=== PATIENT | male | born 1995 | race Caucasian/White ===

== ENCOUNTER 2021-02-05 15:05 | Emergency (ER) | payer SELFPAY ==
[2021-02-05 15:35] VITALS: BP 119/71; PULSE 73; RESP 18; TEMP 36.7; O2SAT 100
--- NOTE | 2021-02-05 15:52 | ED.URI ---
HPI - URI/Sore Throat General Chief Complaint: Upper Respiratory Infection Stated Complaint: Sore Throat Time Seen by Provider: 02/05/21 15:52 Source: patient and RN notes reviewed Mode of arrival: ambulatory Limitations: no limitations History of Present Illness HPI Narrative: 25 [facility] 2 day history of sore swollen scratchy throat, able to swallow but with with increase discomfort. Patient denies any ear pain, sinus drainage, cough, headache or feelings of chest or sinus congestion. Patient states that he has not experienced any known fevers, chills or sweats, denies any shortness of breath or any acute cough. Patient states that his pain is burning and sore, rates it 6/10, has been using throat spray for his discomfort. MD elicited complaint: sore throat Pertinent past history: seasonal allergies and other (tobacco abuse) Onset (ago): day(s) (2) Consistency: constant Severity: moderate Pain scale (0-10): 6 Description of mucous: clear Able to tolerate fluids by mouth: Yes Exacerbating factors: swallowing Relieving factors: other (throat spray helps some) Associated symptoms: denies other symptoms Treatments prior to arrival: other (throat spray) Related Data Allergies Allergy/AdvReac Type Severity Reaction Status Date / Time No Known Allergies Allergy Verified 02/05/21 15:29 Review of Systems Review of Systems: Narrative: CONSTITUTIONAL: Denies fever, chills, or sweats. EYES: Denies visual changes, redness, or discharge. ENT:Denies any rhinorrhea, congestion,positive for sore throat, denies otalgia. CARDIOVASCULAR: Denies chest pain, palpitations, or edema. RESPIRATORY: Denies cough or dyspnea. GASTROINTESTINAL: Denies abdominal pain, nausea, vomiting, or diarrhea. GENITOURINARY: Denies dysuria or hematuria. SKIN: Denies rash or itching. MUSCULOSKELETAL: Denies back pain, joint pain, or myalgia. NEUROLOGIC: Denies headache, numbness, or weakness. PSYCHIATRIC: Denies anxiety or depression. All systems reviewed & are unremarkable except as noted in HPI and below PMFSH Past Medical History Medical History (Updated 02/09/21 @ 20:01 by Marily Cervantes NP) Fracture of arm Seasonal allergies Surgical History Surgical History (Updated 02/09/21 @ 19:57 by Marily Cervantes NP) No history of previous surgery Family History Family History (Updated 02/09/21 @ 19:57 by Marily Cervantes NP) Other No significant family history Social History Social History (Updated 02/05/21 @ 16:00 by Marily Cervantes NP) Smoking packs per day: 0.5 Smoking cigarettes per day: 10.0 Smoking status: Current every day smoker Tobacco type: cigarettes Alcohol intake: current Substance use: never Living arrangements: with family Gender identity (if verbalized by the patient): Male Comments At time of signature, agree with nursing past medical, surgical, social and family history. There is no relevant family history pertinent to the presenting complaint Exam Narrative: Exam Narrative: GENERAL: Well-appearing, well-nourished, and in no acute distress. HEAD: Normocephalic, atraumatic. EYES: PERRLA and EOMI. ENT: Nares clear, no rhinorrhea or epistaxis. Mucous membranes moist.TM's normal with good light reflex, throat red, swollen uvula but midline, tonsils enlarged and acutely red, no post nasal drainage noted, no trismus noted. NECK: Supple.lymphadenopathy noted CHEST: Clear to auscultation. No respiratory distress.no dyspnea or cough noted, SAO2 100% on room air HEART: Regular rate and rhythm. No murmur heard. Normal peripheral pulses. ABDOMEN: Soft, nontender, nondistended, normal active bowel sounds. EXTREMITIES: Normal range of motion. No edema. SKIN: Warm, dry, no rash. NEURO: No focal deficits. Alert and oriented x3. Course Vital Signs Vital signs: Vital Signs Temperature 36.7 C 02/05/21 15:35 Pulse Rate 73 02/05/21 15:35 Respiratory Rate 18 02/05/21 15:
== END 2021-02-05 16:10 | disposition home or self-care (01) ==
PROVIDERS: Emergency Provider Registered Nurse
DX: J03.90 Acute tonsillitis, unspecified (principal); F17.210 Nicotine dependence, cigarettes, uncomplicated
CPT/HCPCS: 87081; 87147; 87880; 99213; G0463

== ENCOUNTER 2023-01-14 09:24 | Emergency (ER) | payer OTHER, SELFPAY ==
[2023-01-14 09:38] VITALS: BP 122/77; PULSE 81; RESP 18; TEMP 36.5; O2SAT 98
--- NOTE | 2023-01-14 09:50 | ED.URI ---
HPI - URI/Sore Throat General Chief Complaint: Upper Respiratory Infection Stated Complaint: Sore Throat Source: patient and RN notes reviewed History of Present Illness HPI Narrative: 27-year-old male presents to urgent care with complaints of a sore throat since Monday. Patient states he has been having pain some subjective fevers and chills. Denies any ear pain, vomiting, diarrhea, chest pain, or shortness of breath. Some parts of this dictation were generated by voice recognition software and may contain typographical and/or grammatical inaccuracies. Related Data Allergies Allergy/AdvReac Type Severity Reaction Status Date / Time No Known Allergies Allergy Verified 01/14/23 10:01 Review of Systems Review of Systems: CONSTITUTIONAL: Denies fever, chills, or sweats. EYES: Denies visual changes, redness, or discharge. ENT: Sore throat CARDIOVASCULAR: Denies chest pain, palpitations, or edema. RESPIRATORY: Denies cough or dyspnea. GASTROINTESTINAL: Denies abdominal pain, nausea, vomiting, or diarrhea. GENITOURINARY: Denies dysuria or hematuria. SKIN: Denies rash or itching. MUSCULOSKELETAL: Denies back pain, joint pain, or myalgia. NEUROLOGIC: Denies headache, numbness, or weakness. [facility] Past Medical History Medical History (Updated 01/14/23 @ 10:02 by Es Whitman APRN) Fracture of arm Seasonal allergies Surgical History Surgical History (Updated 02/09/21 @ 19:57 by Marily Cervantes NP) No history of previous surgery Family History Family History (Updated 02/09/21 @ 19:57 by Marily Cervantes NP) Other No significant family history Social History Social History (Updated 02/05/21 @ 16:00 by Marily Cervantes NP) Smoking packs per day: 0.5 Smoking cigarettes per day: 10.0 Smoking status: Current every day smoker Tobacco type: cigarettes Alcohol intake: current Substance use: never Living arrangements: with family Gender identity (if verbalized by the patient): Male Comments At the time of my signature, I reviewed and agree with the nursing past medical, surgical, social, and family history. There is no relevant family history pertinent to the patient complaint. Exam Narrative: GENERAL: This is a well-nourished, well-developed patient, in no apparent distress. HEAD: normocephalic, atraumatic. EYES: PERRL. Sclera clear/white. Vision is grossly intact. EARS: External ears normal, auditory canals clear and without drainage, TMs normal without perforation. Hearing grossly intact. NOSE: External nose normal with no obvious nasal discharge, nares without redness, no rhinorrhea. THROAT: Mucous membranes moist, posterior pharynx erythemic. No exudate noted.. NECK: Neck supple, non-tender without lymphadenopathy, masses or thyromegaly. CARDIOVASCULAR: Regular rate and rhythm without murmurs, gallops, or rubs. RESPIRATORY: Clear to auscultation. Breath sounds equal bilaterally. No wheezes, rales, or rhonchi. GASTROINTESTINAL: Abdomen soft, non-tender, nondistended. Bowel sounds are active. No hepato-splenomegaly, or palpable masses. No guarding. SKIN: warm, intact with no suspicious lesions or rash, good texture and turgor. NEURO: awake, alert, and oriented to person, place and time. There were no obvious focal neurologic abnormalities. Course Course Level of Care: Express Care Visit Vital Signs Vital signs: Vital Signs Temperature 97.7 F 01/14/23 09:38 Pulse Rate 81 01/14/23 09:38 Respiratory Rate 18 01/14/23 09:38 Blood Pressure 122/77 01/14/23 09:38 Pulse Oximetry 98 01/14/23 09:38 Oxygen Delivery Room Air 01/14/23 09:38 Temperature 97.7 F 01/14/23 09:38 Pulse Rate 81 01/14/23 09:38 Respiratory Rate 18 01/14/23 09:38 Blood Pressure 122/77 01/14/23 09:38 Pulse Oximetry 98 01/14/23 09:38 Oxygen Delivery Room Air 01/14/23 09:38 Reviewed MDM - URI/Sore Throat MDM Narrative Medical decision making narrative: After 24 hour
== END 2023-01-14 10:05 | disposition home or self-care (01) ==
PROVIDERS: Emergency Provider Nurse Practitioner Family; PCP Family Medicine
DX: J02.0 Streptococcal pharyngitis (principal); F17.210 Nicotine dependence, cigarettes, uncomplicated
CPT/HCPCS: 87880; 99213; G0463

== ENCOUNTER 2024-10-15 13:19 | Emergency (ER) | payer SELFPAY ==
--- NOTE | ~2024-10-15 | XR_ITS ---
EXAMINATION: XR chest 2V DATE: 10/15/2024 14:01 INDICATION: Cough TECHNIQUE: PA and lateral views of the chest were obtained. COMPARISON: None FINDINGS: Airspace opacities in the left midlung zone suspicious for pneumonia. Remainder of the lungs are molly r. No pulmonary edema, pleural effusion or pneumothorax. The cardiomediastinal silhouette is normal. Visualized bones and soft tissues are unremarkable. IMPRESSION: 1. Opacity in the left midlung zone suspicious for pneumonia. Reviewed, dictated and finalized at location A. [employer]
[2024-10-15 13:24] VITALS: BP 138/79; PULSE 108; RESP 20; TEMP 37.6; O2SAT 97
--- NOTE | 2024-10-15 14:06 | ED.GENADULT ---
HPI - General Adult General Chief complaint: Upper Respiratory Infection Stated complaint: coug/raspy in chest Source: patient Mode of arrival: ambulatory Limitations: no limitations History of Present Illness HPI narrative: Pt presents for evaluation of a cough for the past six days. Cough is mostly nonproductive. He denies any fever, chills, nausea, vomiting, diarrhea, shortness of breath, wheezing and sore throat. His girlfriend and mother both recently had a cough. He does vape. No underlying medical problems. Related Data Allergies Allergy/AdvReac Type Severity Reaction Status Date / Time No Known Allergies Allergy Verified 10/15/24 13:25 Review of Systems Review of Systems: CONSTITUTIONAL: Denies fever, chills, or sweats. EYES: Denies visual changes, redness, or discharge. ENT: Denies rhinorrhea, congestion, sore throat, or otalgia. CARDIOVASCULAR: Denies chest pain, palpitations, or edema. RESPIRATORY:Reports cough. Denies SOB. GASTROINTESTINAL: Denies abdominal pain, nausea, vomiting, or diarrhea. GENITOURINARY: Denies dysuria or hematuria. SKIN: Denies rash or itching. MUSCULOSKELETAL: Denies back pain, joint pain, or myalgia. NEUROLOGIC: Denies headache, numbness, dizziness, or weakness. PSYCHIATRIC: Denies anxiety or depression. [facility] Past Medical History Medical History Fracture of arm Seasonal allergies Surgical History Surgical History No history of previous surgery Family History Family History Other No significant family history Social History Social History (Updated 10/15/24 @ 14:08 by Stan Mccallum [facility], ) Smoking packs per day: 0.5 Smoking cigarettes per day: 10.0 Smoking status: Current every day smoker Tobacco type: cigarettes and e-cigarettes/vaping Alcohol intake: current Substance use: never Living arrangements: with family Gender identity (if verbalized by the patient): Male Exam Narrative: GENERAL: Well-appearing, well-nourished, and in no acute distress. HEAD: Normocephalic, atraumatic. EYES: PERRLA and EOMI. ENT: Nares clear, no rhinorrhea or epistaxis. Mucous membranes moist. Oropharynx without tonsillar hypertrophy exudate or other lesions. Bilateral TMs pearly mary nonbulging NECK: Supple. No adenopathy or masses. No carotid bruits or JVD CHEST: Rales and wheezing noted in all lung guerra. Cough present on exam HEART: Regular rate and rhythm. No murmur heard. Normal peripheral pulses. ABDOMEN: Soft, nontender, nondistended, normal active bowel sounds. EXTREMITIES: Normal range of motion. No edema. SKIN: Warm, dry, no rash. NEURO: No focal deficits. Alert and oriented x3. PSYCH: Normal mood and affect. Course Course Emergency Course: This is a 29-year-old male who presented for evaluation of a cough. He has evidence of pneumonia on CXR. Will dc with Augmentin, azithromycin, prednisone and albuterol. Advised on smoking cessation. Follow up with primary provider. Go to the ER for worsening symptoms. Patient in agreement with plan of care. Level of Care: Express Care Visit Vital Signs Vital signs: Vital Signs Temperature 37.6 C H 10/15/24 13:24 Pulse Rate 108 H 10/15/24 13:24 Respiratory Rate 20 10/15/24 13:24 Blood Pressure 138/79 10/15/24 13:24 Pulse Oximetry 97 10/15/24 13:24 Oxygen Delivery Room Air 10/15/24 13:24 Temperature 37.6 C H 10/15/24 13:24 Pulse Rate 108 H 10/15/24 13:24 Respiratory Rate 20 10/15/24 13:24 Blood Pressure 138/79 10/15/24 13:24 Pulse Oximetry 97 10/15/24 13:24 Oxygen Delivery Room Air 10/15/24 13:24 Medical Decision Making Vital Signs Vital Signs: Vital Signs Temperature 37.6 C H 10/15/24 13:24 Pulse Rate 108 H 10/15/24 13:24 Respiratory Rate 20 10/15/24 13:24 Blood Pressure 138/79 10/15/24 13:24 Pulse Oximetry 97 10/15/24 13:24 Oxygen Delivery Room Air 10/15/24 13:24 Temperature 37.6 C H 10/15/24 13:24 Pulse Rate 108 H 10/15/24 13:24 Respiratory Rate 20 10/15/24 13:24 Blood Pressure 138/79 10/15/24 13:24 Pulse Oximetry 97 10/15/24 13:24 Oxygen Delivery Room Air 10/15/24 13:24 Imaging Data Radiologist's impression: EXAMINATION: XR chest 2V DATE: 10/15/2024 14:01 INDICATION: Cough TECHNIQUE: PA and lateral views of the chest were obtained. COMPARISON: None FINDINGS: Airspace opacities in the left midlung zone suspicious for pneumonia. Remainder of the lungs are clear. No pulmonary edema, pleural effusion or pneumothorax. The cardiomediastinal silhouette is normal. Visualized bones and soft tissues are unremarkable. IMPRESSION: 1. Opacity in the left midlung zone suspicious for pneumonia. Discharge Plan Discharge Clinical Impression: Community acquired pneumonia Patient Disposition: Home, Self-Care Condition: Stable Instructions: Antibiotic Form, How to Stop Smoking (ED), Pneumonia (ED) Additional Instructions: DEXTROMETHORPHAN(DELSYM) SHOULD HELP WITH YOUR SYMPTOMS Patient Language: [place] Prescriptions: New amoxicillin-pot clavulanate 875-125 mg tablet 1 tablet PO Q12H Qty: 20 0RF azithromycin 250 mg tablet See Rx Instructions .ROUTE .COMPLEX 5 Days Qty: 6 0RF Rx Instructions: For 250 mg dose pack: take 500 mg today (day 1), then 250 mg for 4 days (days 2-5) prednisone 50 mg tablet 50 mg PO DAILY Qty: 5 0RF albuterol sulfate 90 mcg/actuation HFA aerosol inhaler 2 puff inhalation QID PRN (Reason: shortness of breath or wheezing) Qty: 8.5 0RF Follow-up/Referrals: Freddy Noel MD [Physician] - Stand Alone Forms: Work/School Release IP Time of Disposition: 14:16
== END 2024-10-15 14:18 | disposition home or self-care (01) ==
PROVIDERS: Emergency Provider Nurse Practitioner
DX: J18.9 Pneumonia, unspecified organism (principal); F17.210 Nicotine dependence, cigarettes, uncomplicated; F17.290 Nicotine dependence, other tobacco product, uncomplicated
CPT/HCPCS: 71046; 99213; G0463